=== PATIENT | male | born 1995 | race Hispanic/Latino ===

== ENCOUNTER 2020-07-18 00:19 | Emergency (ER) | payer SELFPAY ==
[2020-07-18] VITALS (8 sets, daily range): BP systolic 105–129; BP diastolic 50–72; PULSE 78–99; RESP 18–19; TEMP 36.1; O2SAT 94–99
--- NOTE | ~2020-07-18 | XR_ITS ---
EXAMINATION: XR chest 1V DATE: 07/18/2020 01:08 INDICATION: Altered mental and intoxication. Assess for aspiration. TECHNIQUE: frontal view of the chest was obtained. COMPARISON: None FINDINGS: Minimal linear discoid atelectasis at the left lower lung zone. No other airspace opacities, pulmonar y edema, pleural effusion or pneumothorax. The cardiomediastinal silhouette is normal. Visualized bon es and soft tissues are unremarkable. IMPRESSION: 1. Minimal atelectasis at the left lower lung zone. Reviewed, dictated and finalized at location A. CONTAINER FILLER
--- NOTE | ~2020-07-18 | CT_ITS ---
EXAMINATION: CT brain wo con DATE: 07/18/2020 01:03 INDICATION: Altered mental status. Intoxication. TECHNIQUE: Computed tomography (CT) of the head was performed without intravenous contrast. Sagittal and coronal reconstructions were performed. The mA was adjusted according to patient size. Iterative reconstruction technique was employed. The dose-length product was 605.33 mGy-cm. COMPARISON: None FINDINGS: No acute intracranial hemorrhage, acute infarction or abnormal extra axial fluid collection. Ventricl es are normal and symmetric. No mass/mass effect. Mild mucosal thickening in the right maxillary sinu s. The orbits and mastoid air cells are normal. IMPRESSION: 1. Normal brain. No acute intracranial process. Reviewed, dictated and finalized at location A. AL PROGRAM MANAGER
--- NOTE | 2020-07-18 00:20 | ECG_ITS ---
Measurements Intervals [place] Rate: 97 P: 50 LA: 130 QRS: 48 QRSD: 98 T: 36 QT: 347 QTc: 442 Interpretive Statements SINUS RHYTHM ST ELEVATION IN ANT/HIGH LAT LEADS- PROBABLY EARLY REPOLARIZATION BASELINE ARTIFACT- V1, V3 BORDERLINE ECG Electronically Signed On 07-18-2020 9:23:51 INTEL RECRUITER by Franc Emanuel D.O.
--- NOTE | 2020-07-18 00:20 | ED.AMS ---
HPI - Altered Mental Status General Chief Complaint: Altered Mental Status Stated Complaint: combative/ AMS Time Seen by Provider: 07/18/20 00:20 Source: EMS Mode of arrival: EMS Limitations: altered mental status and intoxication History of Present Illness HPI narrative: Patient is a 25-year-old male who presents for evaluation of altered mental status via EMS. PD called EMS and the patient was found down in an alley way confused. Patient combative for EMS but able to be transported with restraints. Patient was not chemically restrained. At the time of assessment, patient smells of alcohol, is quite intoxicated. He is not combative but he is also not compliant. History cannot be obtained from the patient. He does state that his name is Jordin. He is not able to provide any other history. Related Data Allergies Allergy/AdvReac Type Severity Reaction Status Date / Time POISON DESTINY Allergy Uncoded 10/25/11 12:48 Review of Systems Review of Systems: ROS unobtainable: Yes unobtainable due to mental status PMFSH Past Medical History Medical History (Updated 07/18/20 @ 07:39 by Anette Juarez MD) No pertinent past medical history Social History Social History (Updated 07/18/20 @ 00:23 by Anette Juarez MD) Smoking status: Never smoker Alcohol intake: current Substance use: current Gender identity (if verbalized by the patient): Male Exam Narrative: Exam Narrative: GENERAL: Alert, intoxicated HEAD: Normocephalic, atraumatic. EYES: PERRLA and EOMI. ENT: Nares clear, no rhinorrhea or epistaxis. Mucous membranes moist. NECK: Supple. CHEST: No respiratory distress, breathing even and non labored, no chest wall tenderness HEART: Regular rate, sinus rhythm ABDOMEN:Non distended, non tender EXTREMITIES: Normal range of motion. No edema. SKIN: Warm, dry, no rash. NEURO:No focal deficits. Moving all extremities spontaneously. Altered mental status. Combative. Course Vital Signs Vital signs: Vital Signs Temperature 36.1 C L 07/18/20 00:11 Temperature 36.1 C L 07/18/20 00:11 Pulse Rate 78 07/18/20 06:32 Respiratory Rate 18 07/18/20 06:32 Blood Pressure 115/57 L 07/18/20 06:32 Pulse Oximetry 95 07/18/20 06:32 MDM - Altered Mental Status MDM Narrative Medical decision making narrative: Patient presented for evaluation of altered mental status, patient appears quite intoxicated at the time of assessment and is combative. He had to be physically and then chemically restrained. Laboratory results are reassuring. Patient is quite intoxicated. Patient was given IV fluids in the emergency department, imaging is reassuring. Restraints were able to be removed. Patient was able to awaken. He was ambulatory with a narrow based steady gait. He was back to baseline. He was then discharged home. Differential Diagnosis Differential diagnosis: Likely alcoholic intoxication, altered mental status, hypoglycemia and hyponatremia Medical Records Attestation: I reviewed the patient's medical records. Lab Data Attestation: I reviewed the patient's lab results. Result diagrams: 07/18/20 00:36 07/18/20 00:36 Labs: Lab Results 07/18/20 07/18/20 07/18/20 Range/Units 00:35 00:36 00:36 WBC 11.4 H (4.5-10.0) K/mm3 RBC 5.44 (4.6-6.20) M/mm3 Hgb 16.6 (14.0-18.0) g/dL Hct 46.6 (42.0-52.0) % MCV 85.7 (80-100) fl MCH 30.5 (26-34) pg MCHC 35.6 (32-36) g/dl RDW 11.8 (11.5-14.5) % Plt Count 339 (150-375) k/mm3 MPV 9.2 (7.4-10.4) fl Immature Gran % (Auto) 0.9 H (0-0.5) % Neut % (Auto) 52.9 (45.5-73.1) % Lymph % (Auto) 35.1 (18.3-44.2) % [place] % (Auto) 4.5 (2.6-8.5) % Eos % (Auto) 6.0 H (0-4.4) % Baso % (Auto) 0.6 (0.2-1.2) % Lymph # (Auto) 4.02 H (0.9-3.2) K/mm3 [place] # (Auto) 0.5 (0.1-0.6) K/mm3 Eos # (Auto) 0.7 H (0-0.3) K/mm3 Baso # (Auto) 0.1 (0.0-0.1) K/mm3 Abs Imm
[2020-07-18] MEDS: diphenhydrAMINE HCl INJ 50 MG/ML VIAL IM (00:28)
[2020-07-18] MEDS: HALOPERIDOL LACTATE 5 MG/ML VIAL IM (00:28)
[2020-07-18 00:45] LABS: Basophils Absolute Auto 0.1 K/mm3 (0.0-0.1); Basophils Percent Auto 0.6 % (0.2-1.2); Eosinophils Absolute Auto 0.7 K/mm3 (0-0.3); Hematocrit 46.6 % (42.0-52.0); Hemoglobin 16.6 g/dL (14.0-18.0); Immature Granulocyte Percent A 0.9 % (0-0.5); Lymphocytes Absolute Auto 4.02 K/mm3 (0.9-3.2); Lymphocytes Percent Auto 35.1 % (18.3-44.2); Mean Corpuscular HGB Conc 35.6 g/dl (32-36); Mean Corpuscular Hemoglobin 30.5 pg (26-34); Mean Corpuscular Volume 85.7 fl (80-100); Mean Platelet Volume 9.2 fl (7.4-10.4); Monocytes Absolute Auto 0.5 K/mm3 (0.1-0.6); Monocytes Percent Auto 4.5 % (2.6-8.5); Neutrophils Absolute Auto 6.1 K/mm3 (1.3-6.7); Neutrophils Percent Auto 52.9 % (45.5-73.1); Platelet Count Result 339 k/mm3 (150-375); Red Blood Count 5.44 M/mm3 (4.6-6.20); Red Cell Distribution Width 11.8 % (11.5-14.5); White Blood Count 11.4 K/mm3 (4.5-10.0)
--- NOTE | 2020-07-18 00:52 | PC.NURSE ---
pt to CT via stretcher
[2020-07-18 00:58] LABS: Alanine Aminotransferase 38 U/L (4-50); Albumin Level 4.8 g/dL (3.5-5.1); Alkaline Phosphatase 120 U/L (38-126); Anion Gap 18 mmol/L (8-16); Aspartate Amino Transferase 50 U/L (17-59); Bilirubin,Total 0.5 mg/dL (0.2-1.3); Blood Urea Nitrogen 19 mg/dL (9-20); Calcium 8.4 mg/dL (8.4-10.2); Carbon Dioxide 17 mmol/L (22-30); Chloride 109 mmol/L (98-107); Estimated Glomerular Filt Rate > 60; Glucose 123 mg/dL (75-110); Sodium 144 mmol/L (137-145)
[2020-07-18 01:04] LABS: Add Urine Microscopic? YES; Appearance Urine Clear (Clear); Bacteria Urine Trace /hpf; Bilirubin Urine Negative (Negative); Blood Urine 1+ (Negative); Color Urine Yellow (Yellow); Glucose Urine UA Negative (Negative); Ketones Urine Negative (Negative); Leukocyte Esterase Ur Negative LEU/UL (Negative); Mucus Urine Rare /lpf; Nitrate Urine Negative (Negative); Protein Urine 1+ mg/dL (Negative); RBC Urine 0-2 /hpf (0-2); Specific Grav Ur 1.012 (1.001-1.035); Squamous Epithelial Cell Urine Rare /hpf (Few); Urobilinogen Urine Negative mg/dL (<2.0); WBC Urine 0-3 /hpf
[2020-07-18 01:17] LABS: Amphetamine Screen Urine Negative (Negative); Barbiturate Screen Urine Negative (Negative); Benzodiazepines Screen Urine Negative (Negative); Cannabinoid Screen Urine Negative (Negative); Cocaine Screen Urine Negative (Negative); Methadone Screen Urine Negative (Negative); Opiate Screen Urine Negative (Negative); Phencyclidine Screen Urine Negative (Negative)
[2020-07-18] MEDS: THIAMINE HCL 200 MG/2 ML VIAL 100 MG IV PUSH (01:24)
[2020-07-18] MEDS: SODIUM CHLORIDE 0.9% IV 1,000 ML 999 ML IV CONT (01:24)
[2020-07-18 01:59] LABS: Acetaminophen < 10 ug/mL (10-30); Salicylate < 1.0 mg/dL (2-20)
[2020-07-18 02:00] LABS: Ethanol 379 mg/dL (<10)
[2020-07-18 04:27] LABS: Glucose Point of Care 128 (65-105)
== END 2020-07-18 07:52 | disposition home or self-care (01) ==
PROVIDERS: Emergency Provider Emergency Medicine
DX: R41.82 Altered mental status, unspecified (principal); F10.920 Alcohol use, unspecified with intoxication, uncomplicated; R94.31 Abnormal electrocardiogram [ECG] [EKG]; Y90.8 Blood alcohol level of 240 mg/100 ml or more
CPT/HCPCS: 36415; 51701; 70450; 71045; 80053; 80307; 81001; 82948; 85025; 93005; 96361; 96372; 96374; 99284; J1200; J1630; J3411; J7030